=== PATIENT | male | born 1960 | race Caucasian/White ===

== ENCOUNTER 2016-10-25 04:25 | Observation (INO) | payer OTHER ==
[~2016-10-25] VITALS: Ht 198.1 cm; Wt 131.5 kg
--- NOTE | ~2016-10-25 | HP ---
PATIENT'S NAME: ASHISH SETHI [facility] AGE: 56 Y [address] ROOM: [id number] [place] [id number] [place] [facility] [place]: 10/25/2016 History & Physical DISCHARGE DATE: FAMILY PHYSICIAN: SLY IYER MD ATTENDING PHYSICIAN: SLY IYER DATE OF SERVICE: CHIEF COMPLAINT: Right flank pain. HISTORY OF PRESENT ILLNESS: Ashish is a 56-year-old , white male, who I see as an outpatient. The patient presented to the emergency room, was seen by Dr. Gabby Francois today. I was called by Dr. Francois just after 6:00 a.m. this morning because the patient had presented with right flank pain and had by CAT scan an obstructing 4 mm stone in his right UPJ and a large left renal stone amount. The patient is admitted at this time, kept n.p.o., and he will be seen later today by Dr. Fairbanks, urologist religion department chair. Dr. Fairbanks was notified of the patient's history, lab, urine findings, and CT findings and asked that I be as his primary care physician, the admitting physician, and Dr. Fairbanks will direct care from there. When I see the patient, he is uncomfortable with right flank pain. He has had morphine and Dilaudid. We will put an IV and give him IV fluids. Continue IV Dilaudid, give him IV Zofran, and let Dr. Fairbanks deal with the next portion of his care. His is present for the interview. The patient does not complain of recent chest pain, shortness of breath, nausea, or vomiting. Has no personal or family history of bleeding disorder. No personal or family history of problems with general or local anesthesia. He does have a remote history of kidney stones in the past. He does have history of asthma which has been quiescent. He does use his inhalers daily. CURRENT MEDICATIONS: See nurse's notes. ALLERGIES: "TO DYE." PREVIOUS OPERATIONS: See nurse's notes. SOCIAL HISTORY: PATIENT'S NAME: ASHISH SETHI [facility] AGE: 56 Y [address] ROOM: [address] [place], [place] [address] [place] [facility] [place] DATE: 10/25/2016 History & Physical DISCHARGE DATE: FAMILY PHYSICIAN: SLY IYER MD ATTENDING PHYSICIAN: SLY IYER He does not smoke at this time. FAMILY HISTORY: As mentioned. IMMUNIZATIONS: Status unknown. REVIEW OF SYSTEMS: HEENT: No recent visual changes, ear ache, or sore throat. ENDOCRINE: He is not diabetic. There is no thyroid disease. LUNGS: Positive history of asthma. Negative history of recent shortness of breath. HEART: No history of hypertension, chest pain, or previous SC. No recent palpitations. GI: Some nausea now. No recent ulcer, gallbladder problems, melena, or liver disorder. RENAL: As above. SKIN: No recent rashes. MENTAL STATUS: No history of depression or anxiety. NEUROLOGIC: No history of seizures, syncope, or stroke in the past. PHYSICAL EXAMINATION: VITAL SIGNS: Per nurse's notes. GENERAL: He is alert, uncomfortable male, groggy from his narcotic, laying on his left side when I see him in the room with his . HEENT: Shows pupils react to light. TMs not visualized. Posterior pharynx is clear. NECK: Unremarkable. Thyroid enlarged. LUNGS: Clear without wheeze or rub. HEART: Shows no murmur, gallop, or rub. ABDOMEN: Soft without point tenderness. PELVIC/RECTAL: Not done. EXTREMITIES: Unremarkable. Pulses full throughout. NEUROLOGIC: Grossly intact. Cranial nerves intact. Mental status consistent with narcotics. ASSESSMENT: 1. Severe right flank pain secondary to obstructing 4 mm stone in right ureteropelvic junction. 2. Large left renal stones. 3. History of renal stones and renal colic in the past. 4. Asthma, stable, mild. PLAN: As above. PATIENT'S NAME: ASHISH SETHI [facility] AGE: 56 Y [address] ROOM: [place] [address] [place] [facility] [place] DATE: 10/25/2016 History & Physical DISCHARGE DATE: FAMILY PHYSICIAN: SLY IYER MD ATTENDING PHYSICIAN: SLY IYER SLY IYER MD MENTAL RETARDATION AIDE/modl /[id number] D: [id number] T: [id number] HISTORY & PHYSICAL
--- NOTE | ~2016-10-25 | OR ---
PATIENT'S NAME: ELLIE SETHI [facility] AGE: 56 Y [address] ROOM: [place] [address] [place] [facility] [place]: 10/25/[place] OR/Procedure Report DISCHARGE DATE: 10/25/2016 FAMILY PHYSICIAN: Javier Diaz MD ATTENDING PHYSICIAN: Javier Diaz SURGEON: Velma Fairbanks MD SAUSAGE GRINDER: DATE OF PROCEDURE: 10/25/2016 PREOPERATIVE DIAGNOSIS: Right proximal ureter stone. POSTOPERATIVE DIAGNOSES: 1. Right proximal ureter stone. 2. Bulbourethral stricture. 3. Benign prostatic hypertrophy. PROCEDURE PERFORMED: 1. Cystoscopy. 2. Urethral dilatation. 3. DVIU. 4. Right ureteral stent placement. 5. Complicated Clemons placement. ANESTHESIA: MAC. COMPLICATIONS: None. INDICATION FOR PROCEDURE: The patient is a 56-year-old male with acute onset of right flank pain. Abdominopelvic CT scan revealed a 4 mm proximal right ureter stone with obstruction. The patient is also noted to have 3 large left lower pole stones between 14 and 19 mm in diameter. After discussing this with the patient, he elected proceed with stent placement and ESWL in the future. DETAILS OF PROCEDURE: After informed consent obtained, the patient was taken to the operating room. A MAC anesthetic was applied. He was placed in the dorsal lithotomy position. The groin area was prepped and draped in normal sterile fashion. Cystoscope was introduced into the urethra at which point, the patient was noted to have a fairly tight bulbourethral stricture. I then passed the filiform through the stricture and removed the cystoscope. I then dilated with filiforms followers starting at 16-Belizean and increased to 20- Belizean. I then used the urethrotome to open the stricture further cutting at the 12 o'clock position until bleeding tissue was obtained. Following that, the cystoscope was then introduced into the prostatic urethra and bladder. The patient was noted to have moderate to severe prostatic enlargement with PATIENT'S NAME: ELLIE SETHI [facility] AGE: 56 Y [address] ROOM: [place] [address] [place] [facility] [place]: 10/25/2016 OR/Procedure Report DISCHARGE DATE: 10/25/2016 FAMILY PHYSICIAN: Javier Diaz MD ATTENDING PHYSICIAN: Javier Diaz significant median lobe enlargement. Upon entering the bladder, the right ureteral orifice was identified and cannulated with a guidewire up into the renal pelvis. Following this, a 6-Belizean multi-length ureteral stent was passed over the guidewire up into the renal pelvis. Radiographic images showed good position of the stent. Following that, a 20-Belizean Clemons catheter was placed. The patient tolerated this procedure well, was transferred to the recovery room in good condition. MD DYANA BURTON/jori /[id number] d: 10/25/161921 t: 11/14/16 1157, OPERATIVE SUMMARY
--- NOTE | ~2016-10-25 | ER ---
PATIENT'S NAME: ELLIE SETHI [facility] AGE: 56 Y [address] ROOM: [place] [address] LOCATION: [facility] ADMIT DATE: 10/25/2016 ER/Outpatient Report DISCHARGE DATE: FAMILY PHYSICIAN: Javier Diaz MD ATTENDING PHYSICIAN: Kyler Ferrara Time of Arrival: 0425 hours. Time of Evaluation: 0434 hours. CHIEF COMPLAINT: Flank pain. HISTORY OF PRESENT ILLNESS: The patient is a 56-year-old male, who presents to the emergency department today with a chief complaint of right flank pain. He reports this started about 2.5 hours prior to arrival. It is currently 15/10 in severity. He reports nausea with some mild vomiting as well. Denies any fevers or chills. No blood in his urine. No urinary frequency, urgency, or painful urination. It is in his right flank and right lower quadrant, sharp. PAST MEDICAL HISTORY: Asthma. PAST SURGICAL HISTORY: Kidney stones. SOCIAL HISTORY: The patient denies any tobacco, alcohol, or illicit drug use. ALLERGIES: NO KNOWN DRUG ALLERGIES. MEDICATIONS: Please see list. PRIMARY CARE DOCTOR: Dr. Diaz. REVIEW OF SYSTEMS: All systems are reviewed by myself and are negative with the exception of those discussed in the HPI and past medical history. PHYSICAL EXAMINATION: VITAL SIGNS: Weight 131.5 kg. Blood pressure 165/97, pulse 80, respiratory rate 16, temperature 97.6, and oxygen saturation 95% on room air. PATIENT'S NAME: ELLIE SETHI [facility] AGE: 56 Y [address] ROOM: [place] [address] LOCATION: [facility] ADMIT DATE: 10/25/2016 ER/Outpatient Report DISCHARGE DATE: FAMILY PHYSICIAN: Javier Diaz MD ATTENDING PHYSICIAN: Kyler Ferrara GENERAL: The patient is a 56-year-old male, who appears at stated age, in obvious acute discomfort secondary to pain in his flank. HEENT: Normocephalic, atraumatic. Pupils are equal, round, and reactive to light. Extraocular motions are intact. Mucous membranes moist. NECK: Supple. There is no nuchal rigidity. CARDIOVASCULAR: Regular rate and rhythm. No murmurs, rubs, or gallops. LUNGS: Clear to auscultation bilaterally. ABDOMEN: Soft, nontender, nondistended. No rebound, rigidity, or guarding. Positive bowel sounds. Positive CVA tenderness. MUSCULOSKELETAL: The patient moves all 4 extremities. SKIN: Warm and dry. There are no rashes or lesions noted. LABORATORY DATA AND X-RAYS: Urinalysis: 100 leukocyte esterase, 30 protein, 250 blood, 5 to 10 wbc's, 50 to 100 rbc's, few bacteria. CT scan shows a right UPJ stone with moderate right hydronephrosis. There is a large left nephrolithiasis, nonobstructing. CMP unremarkable except for a CO2 of 19. LFTs normal. CBC is normal. IMPRESSION: 1. Right ureterolithiasis at the ureteropelvic junction. 2. Left nephrolithiasis. 3. Initial visit. EMERGENCY DEPARTMENT COURSE: The patient is brought back to the examination room. Seen and evaluated by myself. An IV is established. Laboratory analysis and imaging are obtained as described above. The patient is given 30 mg of Toradol IV, 4 mg of Zofran IV as well as 5 mg of morphine IV with improvement in the patient's pain. A repeat dose of morphine is obtained. The patient is given a liter of normal saline. I have discussed results with the patient. Recommended followup with Urology, to call for an appointment. He has seen Dr. Barger in the past. I have discussed [id number] instructions including worsening of symptoms or any other concerns to return to the emergency department as soon as possible. The patient is agreeable without further questions at this time. DISPOSITION: The patient is discharged to home in good condition. DO VICKY MICHELLE/jori PATIENT'S NAME: ELLIE SETHI [facility] AGE: 56 Y [address] ROOM: [place], [place] [address] LOCATION: [facility] ADMIT DATE: 10/25/2016 ER/Outpatient Report DISCHARGE DATE: FAMILY PHYSICIAN: Javier Diaz MD ATTENDING PHYSICIAN: Kyler Ferrara /[id number] d: 10/25/16 0638 t: 10/31/16 1553, OUTPATIENT REPORT
--- NOTE | ~2016-10-25 | ER ---
PATIENT'S NAME: ASHISH SETHI [facility] AGE: 56 Y [address] ROOM: [place] [address] [place] [facility] [place]: 10/25/2016 ER/Outpatient Report DISCHARGE DATE: FAMILY PHYSICIAN: SLY DIAZ MD ATTENDING PHYSICIAN: SLY DIAZ HISTORY OF PRESENT ILLNESS: Ashish Sethi is a 56-year-old male patient evaluated by Dr. Ferrara. Please refer to his dictation. The patient had significant increase in his pain and was given an additional 5 mg of morphine at 0535 hours, and at 0605 hours, he was still having pain, 10/10. He was given an additional 2 mg of morphine, still rating his pain at 10/10. He was given Dilaudid 0.25 mg with minimal improvement of his pain. I did contact Dr. Fairbanks, urologist as well as Dr. Diaz. Plan for admission per Dr. Diaz with Dr. Fairbanks as consulting. IMPRESSION AND PLAN: 1. A 4-mm stone at the right ureteropelvic junction with significant pain. 2. Large nonobstructing stones, inferior left kidney. Plan for admission per Dr. Diaz for pain control with Dr. Fairbanks for Urology consultation. MD CHLOE HOSKINS/jori /[id number] d: 10/25/16 1404 t: 10/26/16 1735, OUTPATIENT REPORT
[2016-10-25 04:44] LABS: BASOPHIL # 0.1 K/uL (0.0-0.2); BASOPHIL % 0.9 %; EOSINOPHIL # 0.4 K/uL (0.0-0.5); HEMATOCRIT 45.6 % (37.0-53.0); HEMOGLOBIN 15.9 g/dL (12.0-17.0); IMMATURE GRANULOCYTE % 0.1 %; LYMPHOCYTE # 2.9 K/uL (0.8-4.0); LYMPHOCYTE % 41.5 %; MCH 30.1 pg (27.0-34.0); MCHC 34.9 gm/dL (32.0-36.5); MCV 86.4 fl (83.0-98.0); MONOCYTE # 0.8 K/uL (0.0-1.0); MONOCYTE % 10.9 %; MPV 10.5 fl (9.4-12.4); NEUTROPHIL # (ANC) 2.9 K/uL (1.4-9.0); NEUTROPHIL % 41.6 %; NRBC % 0 /100WBC (0-0.00); PLATELET COUNT 213 K/uL (150-450); RBC 5.28 M/uL (4.00-6.00); RDW-CV 12.4 % (11.9-14.6)
[2016-10-25 05:03] LABS: ALBUMIN 3.4 gm/dL (3.5-5.0); ALK PHOS 99 IU/L (33-138); ALT 26 IU/L (12-78); AST 19 IU/L (10-40); BLOOD UREA NITROGEN 19 mg/dL (6-24); CALCIUM 8.6 mg/dL (8.5-10.5); CHLORIDE 110 mMol/L (96-110); CO2 19 mMol/L (22-32); CREATININE 0.9 mg/dL (0.6-1.3); SODIUM 140 mMol/L (135-145); TOTAL BILIRUBIN 0.5 mg/dL (0.0-1.5); TOTAL PROTEIN 7.2 g/dL (6.0-8.4)
[2016-10-25 05:21] LABS: BILIRUBIN URINE NEGATIVE (NEGATIVE); BLOOD URINE 250 /UL (NEGATIVE); COLOR URINE YELLOW (YELLOW); GLUCOSE URINE NEGATIVE (NEGATIVE); KETONE URINE NEGATIVE (NEGATIVE); LEUKOCYTES URINE 100 /UL (NEGATIVE); NITRITE URINE NEGATIVE (NEGATIVE); PROTEIN URINE 30 mg/dL (NEGATIVE); TURBIDITY URINE 2+ (CLEAR); UROBILINOGEN URINE NORMAL (NORMAL)
[2016-10-25 05:30] LABS: BACTERIA URINE FEW (NEGATIVE); CRYSTALS URINE CALCIUM OXALATE (NEGATIVE); EPITHELIAL URINE 0-2 #/HPF (NEGATIVE); MUCUS URINE 1+ (NEGATIVE); RBC URINE 50-100 #/HPF (NEGATIVE)
[2016-10-25] MEDS ORDERED: ADVIL200 MG PO (09:34)
--- NOTE | 2016-10-25 09:41 | NUR ---
D: Pt admitted from the ED. Pt reported that he had right flank pain that began at 0200 this am. Pt was seen in the ED and given IV pain medication with relief for only short periods of time. He rates his pain "6-8". Pt has an iv in his left hand. Pt has a history of asthma and prior kidney stone in 2000. Pt is alert and social but having odvious discomfort prior to medication. Dilaudid 0.2mg brought pain to a "2". P: Plan for stent placement today.
[2016-10-25] MEDS ORDERED: PERCOCET 5-3251 EACH PO (15:02)
--- NOTE | 2016-10-25 16:42 | NUR ---
Significant Event: Pt was admitted from ER this am due to right flank pain and kidney stone. He was taken to OR at 1120 for a cysto and stent placement. Pt returned from OR with a urinary catheter in place. Pt had some bleeding around catheter site immediately after getting back but that has resolved. Pt did c/o feeling like he needed to have a bowel movement. Pt had 350ml of tea colored urine output prior to OR and 400ml of yellow urine per bazzi after. He was given 1 norco in PACU. Pt was instructed on catheter care. A leg bag was applied and instructions given. Large bag was sent home with pt for nights. Urine strainer was also sent home with a collection cup in case a stone was passed. Pt will f/u with dr. meredith next week and dr. florian the next week. IV was removed without problem. Follow up:
[2016-10-29] MEDS ORDERED: TYLENOL325 MG PO (11:33)
[2016-10-29] MEDS ORDERED: DILAUDID 4MG4 MG PO (11:34)
[2016-10-29] MEDS ORDERED: COLACE100 MG PO (11:34)
[2016-10-29] MEDS ORDERED: PROVENTIL OR V6.7 GM INH (11:39)
== END 2016-10-25 16:37 | disposition disaster alternative care site (69) ==
LOC: GMED 04:25 → GMSU 06:50
PROVIDERS: Emergency Medicine; ADMIT Family Medicine
PROC: 0T768DZ Dilation of Right Ureter with Intraluminal Device, Via Natural or Artificial Opening Endoscopic (ICD-10-PCS; principal; 2016-10-25)
PROC: 0T7D8ZZ Dilation of Urethra, Via Natural or Artificial Opening Endoscopic (ICD-10-PCS; 2016-10-25)
PROC: 0T7D8ZZ Dilation of Urethra, Via Natural or Artificial Opening Endoscopic (ICD-10-PCS; 2016-10-25)
DX: N35.8 Other urethral stricture (principal); N20.2 Calculus of kidney with calculus of ureter; N40.0 Benign prostatic hyperplasia without lower urinary tract symptoms; Z91.041 Radiographic dye allergy status; J45.909 Unspecified asthma, uncomplicated
CPT/HCPCS: C1769; J1170; J1885; J1956; J2270; J2405; J3010; J7030

== ENCOUNTER 2016-10-27 17:28 | Emergency (ER) | payer OTHER ==
--- NOTE | ~2016-10-27 | ER ---
PATIENT'S NAME: ELLIE SETHI [facility] AGE: 56 Y [address] ROOM: [place] [address] LOCATION: [facility] ADMIT DATE: 10/27/2016 ER/Outpatient Report DISCHARGE DATE: 10/27/2016 FAMILY PHYSICIAN: Javier Diaz MD ATTENDING PHYSICIAN: Gabby Francois Admission date and time documented in medical record. I saw the patient at 1745 hours. CHIEF COMPLAINT: Pain in the distal tip of his penis. Blood in his urinary catheter. HISTORY OF PRESENT ILLNESS: This patient is a 56-year-old male, who was found to have a right ureteral stone that would not pass. He underwent cystoscopy stent placement in the right ureter, scheduled for lithotripsy on this coming Saturday. He was placed on VESIcare and oxycodone for pain. He does have a Clemons catheter in place. He is having increasing pain in his penis that is not being controlled with his pain medication. Unable to have a bowel movements since Saturday. He has had intermittent red-tinged urine since placement of the catheter on . HOME MEDICATIONS: See attached medication list. ALLERGIES: NONE. SOCIAL HISTORY: Nonsmoker. Nondrinker. SIGNIFICANT PAST MEDICAL HISTORY: Nephrolithiasis, asthma, and benign prostatic hypertrophy. OPERATIONS: Cystoscopy stent placement. REVIEW OF SYSTEMS: All systems reviewed by me are negative with exception of those discussed in the history of the present illness. PHYSICAL EXAMINATION: VITAL SIGNS: Temperature 98.6 tympanic, pulse 88, respirations 18, blood pressure 145/79, O2 saturation on room air is 96%. ABDOMEN: Soft, nondistended, and nontender. No CVA tenderness. PATIENT'S NAME: ELLIE SETHI [facility] AGE: 56 Y [address] ROOM: [place] [address] LOCATION: [facility] ADMIT DATE: 10/27/2016 ER/Outpatient Report DISCHARGE DATE: 10/27/2016 FAMILY PHYSICIAN: Javier Diaz MD ATTENDING PHYSICIAN: Gabby Francois BACK: Intact. Does have indwelling Clemons catheter. GENITOURINARY: His penis is normal. Does have some blood-tinged urine, but no nestor blood or blood clots were seen in the tubing. NEUROVASCULAR: Intact. The patient is functional. DIAGNOSTIC DATA: KUB x-ray shows good placement of the right ureteral stent. Does have a lot of stool in the ascending right colon. We will review x-ray with the radiologist. CBC showed a white count of 8400, 60 segs, 25 lymphs, 9 monos, 5 eos, 1 baso. Hemoglobin 16.5, hematocrit 48.0, platelet count is 232,000. IMPRESSION: 1. Pain in distal penis secondary to ureteral stent and spasm. 2. Hematuria secondary to ureteral stent. 3. Right nephrolithiasis with the patient scheduled for lithotripsy this coming Saturday. 4. Benign prostatic hypertrophy. 5. Constipation. 6. Asthma. PLAN: The patient was given Dilaudid 1 mg plus Phenergan 50 mg IM in the Emergency Department, 2 Dulcolax tabs. The patient was sent home with a bottle of magnesium citrate to take orally when he gets home. Continue present home medications and care. I did give him Dilaudid 4 mg 1 every 6 hours as needed for pain #10. Follow up with Urology as scheduled on Saturday. See personal physician as needed. MD PALOMO EVANS/warrenl /[id number] d: 10/27/162115 t: 10/27/16 2205, OUTPATIENT REPORT
[~2016-10-27 17:28] MED LIST: ADVIL200 MG PO; PERCOCET 5-3251 EACH PO
[2016-10-27 18:29] LABS: BASOPHIL # 0.1 K/uL (0.0-0.2); EOSINOPHIL # 0.4 K/uL (0.0-0.5); EOSINOPHIL % 4.7 %; HEMOGLOBIN 16.7 g/dL (12.0-17.0); IMMATURE GRANULOCYTE % 0.1 %; LYMPHOCYTE # 2.1 K/uL (0.8-4.0); MCH 30.6 pg (27.0-34.0); MCHC 34.8 gm/dL (32.0-36.5); MCV 88.1 fl (83.0-98.0); MONOCYTE # 0.8 K/uL (0.0-1.0); MONOCYTE % 9.1 %; MPV 10.5 fl (9.4-12.4); NEUTROPHIL % 60.1 %; NRBC % 0 /100WBC (0-0.00); PLATELET COUNT 232 K/uL (150-450); RBC 5.45 M/uL (4.00-6.00); RDW-CV 12.6 % (11.9-14.6); WBC 8.4 K/uL (4.0-11.0)
[2016-10-29] MEDS ORDERED: TYLENOL325 MG PO (11:33)
[2016-10-29] MEDS ORDERED: COLACE100 MG PO (11:34)
[2016-10-29] MEDS ORDERED: DILAUDID 4MG4 MG PO (11:34)
[2016-10-29] MEDS ORDERED: PROVENTIL OR V6.7 GM INH (11:39)
== END 2016-10-27 19:01 | disposition disaster alternative care site (69) ==
LOC: GMED 17:28
PROVIDERS: Emergency Medicine
DX: T83.83XA Hemorrhage due to genitourinary prosthetic devices, implants and grafts, initial encounter (principal); N48.89 Other specified disorders of penis; N20.0 Calculus of kidney; N40.0 Benign prostatic hyperplasia without lower urinary tract symptoms; J45.909 Unspecified asthma, uncomplicated; K59.00 Constipation, unspecified; Z79.891 Long term (current) use of opiate analgesic; Z79.899 Other long term (current) drug therapy
CPT/HCPCS: J1170; J2550

== ENCOUNTER → 2016-10-30 | Day surgery (SDC) | payer OTHER ==
[~2016-10-30] VITALS: Ht 198.1 cm; Wt 127.0 kg
[~2016-10-30] MED LIST changes: +COLACE100 MG PO; +DILAUDID 4MG4 MG PO; +PROVENTIL OR V6.7 GM INH; +TYLENOL325 MG PO
--- NOTE | ~2016-10-30 | OR ---
PATIENT'S NAME: ELLIE SETHI [facility] AGE: 56 Y [address] ROOM: [place] [address] LOCATION: [facility] [place] ADMIT DATE: 10/30/2016 OR/Procedure Report DISCHARGE DATE: FAMILY PHYSICIAN: SLY DIAZ MD ATTENDING PHYSICIAN: Velma Fairbanks SURGEON: Velma Fairbanks MD AUTO DAMAGE ADJUSTER: DATE OF PROCEDURE: 10/30/2016 PREOPERATIVE DIAGNOSIS: Right nephrolithiasis. POSTOPERATIVE DIAGNOSIS: Right nephrolithiasis. PROCEDURE PERFORMED: Right ESWL, cystoscopy with stent removal. ANESTHESIA: MAC. COMPLICATIONS: None. INDICATION FOR PROCEDURE: The patient is a 56-year-old male who is status post cystoscopy with right stent placement for a 5 mm right UPJ obstructing stone. The patient now presents for ESWL and stent removal. DETAILS OF PROCEDURE: After informed consent obtained, the patient was taken to the operating room. A MAC anesthetic was applied and he was placed in a supine position on the lithotripsy table. His 5 mm stone was in the proximal ureter adjacent to the stent. He received shocks starting at 14 kilovolts and gradually increased to 24 kilovolts. The patient received a total of 3000 shocks with good fragmentation of the stone. The groin area was prepped and draped in a normal sterile fashion. Flexible cystoscope was introduced into the urethra and bladder without difficulty. His stent was identified in the right ureteral orifice, engaged with alligator forceps and removed. The patient tolerated his procedure well and was transferred to the recovery room in good condition. MD DYANA BURTON/warrenl /[id number] PATIENT'S NAME: ELLIE SETHI [facility] AGE: 56 Y [address] ROOM: [place] [address] LOCATION: [facility] [place] ADMIT DATE: 10/30/2016 OR/Procedure Report DISCHARGE DATE: FAMILY PHYSICIAN: SLY DIAZ MD ATTENDING PHYSICIAN: Velma Fairbanks CC: Sly Diaz MD d: 10/30/16 2133 t: 11/14/16 1157, OPERATIVE SUMMARY
== END | disposition disaster alternative care site (69) ==
LOC: GPOC 10-29 10:00 → GSDC 10:00
PROC: 0TF6XZZ Fragmentation in Right Ureter, External Approach (ICD-10-PCS; principal; 2016-10-30)
PROC: 0TP98DZ Removal of Intraluminal Device from Ureter, Via Natural or Artificial Opening Endoscopic (ICD-10-PCS; 2016-10-30)
DX: N20.2 Calculus of kidney with calculus of ureter (principal); J45.30 Mild persistent asthma, uncomplicated; Z98.890 Other specified postprocedural states
CPT/HCPCS: J1100; J1956; J2001; J2405; J3010; J7120